=== PATIENT | female | born 1985 | race Hispanic/Latino ===

== ENCOUNTER 2019-12-11 07:43 | Day surgery (SDC) | payer SELFPAY ==
[~2019-12-11 07:43] MED LIST: CARAFATE1 GM PO; OMEPRAZOLE20 MG PO; PROVENTIL HFA IN; SUCRALFATE1 GM PO
[2019-12-11] MEDS ORDERED: PERCOCET 5/325M1 TAB PO (10:39)
[2019-12-11 11:36] VITALS: BP 115/74
== END 2019-12-11 09:45 | disposition home or self-care (01) | DRG 419 ==
LOC: ENDO 07:43 → ORM 08:00 → ENDO 09:45
PROVIDERS: ATTEND Surgery
PROC: 0FT44ZZ Resection of Gallbladder, Percutaneous Endoscopic Approach (ICD-10-PCS; principal; 2019-12-11)
DX: K80.10 Calculus of gallbladder with chronic cholecystitis without obstruction (principal); Z20.828 Contact with and (suspected) exposure to other viral communicable diseases
CPT/HCPCS: J0131; J1610; J2710; Q9967